=== PATIENT | male | born 1950 | race Caucasian/White ===

== ENCOUNTER 2025-01-19 16:51 | Emergency (ER) | payer OTHER ==
[~2025-01-19] VITALS: Ht 172.7 cm; Wt 71.7 kg
[2025-01-19] MEDS ORDERED: NAPR500 PO (18:04)
[2025-01-19] MEDS ORDERED: CEPH500 PO (18:04)
== END 2025-01-19 18:22 | disposition home or self-care (01) ==
LOC: ER 16:51
DX: S60.022A Contusion of left index finger without damage to nail, initial encounter (principal); W23.0XXA Caught, crushed, jammed, or pinched between moving objects, initial encounter; F17.200 Nicotine dependence, unspecified, uncomplicated
CPT/HCPCS: 73130; 99283-25